=== PATIENT | male | born 1970 | race Caucasian/White ===

== ENCOUNTER → 2022-05-15 | Day surgery (SDC) | payer BC ==
[~2022-05-15] MED LIST: CRESTOR5 MG PO; LEVOTHYROXINE75 MCG PO; VARENICLINE TART1 MG PO
== END | disposition home or self-care (01) ==
LOC: OR 05-01 09:15
DX: Z12.11 Encounter for screening for malignant neoplasm of colon (principal); K64.0 First degree hemorrhoids; E03.9 Hypothyroidism, unspecified; F17.200 Nicotine dependence, unspecified, uncomplicated; E78.5 Hyperlipidemia, unspecified; Z79.890 Hormone replacement therapy
CPT/HCPCS: J2704